=== PATIENT | female | born 1940 | race Caucasian/White ===

== ENCOUNTER → 2016-07-16 | Outpatient (CLI) | payer MEDICARE ==
[~2016-07-16] MED LIST: ALLOPURINOL300 MG PO; ASA CHILDREN'S81 MG PO; CALTRATE-600 D600 MG PO; COREG DPS6.25 MG PO; COUMADIN2.5 MG PO; COUMADIN5 MG PO; FIBERCON DPS625 MG PO; NORCO 10-325 T1 EACH PO; SYNTHROID DPS0.1 MG PO; THERAPEUTIC MUL1 TA1 PO; VITAMIN D31000 UNIT PO; ZOCOR80 MG PO
== END | disposition home or self-care (01) ==
LOC: RAD.S 08:15 → ONCM 08:15 → RAD.S 08:23
DX: C50.912 Malignant neoplasm of unspecified site of left female breast (principal); C79.51 Secondary malignant neoplasm of bone; I82.401 Acute embolism and thrombosis of unspecified deep veins of right lower extremity; I10 Essential (primary) hypertension

== ENCOUNTER → 2016-07-20 | Outpatient (CLI) | payer MEDICARE | END | disposition home or self-care (01) | LOC: RAD.S 08:43 | DX: C50.912 Malignant neoplasm of unspecified site of left female breast (principal); C79.51 Secondary malignant neoplasm of bone; I82.401 Acute embolism and thrombosis of unspecified deep veins of right lower extremity; I10 Essential (primary) hypertension; K76.89 Other specified diseases of liver ==